=== PATIENT | male | born 1945 | race Caucasian/White ===

== ENCOUNTER 2021-06-23 06:36 | Day surgery (SDC) | payer OTHER, SELFPAY ==
[~2021-06-23] VITALS: Ht 170.2 cm; Wt 80.3 kg
[2021-06-23] MEDS ORDERED: fentaNYL citrate 0.05 MG/ML VIAL ONE (09:20)
[2021-06-23] MEDS ORDERED: LIDOCAINE 2% 100 MG/5 ML UJET TP ONE (09:20)
[2021-06-23] MEDS ORDERED: fentaNYL citrate 0.05 MG/ML VIAL IVP ONE (10:00)
== END 2021-06-23 11:17 | disposition home or self-care (01) ==
LOC: MLB 06:36 → MMU 06:37 → MLB 11:17
PROVIDERS: ATTEND Internal Medicine Gastroenterology
DX: K62.5 Hemorrhage of anus and rectum (principal); K57.30 Diverticulosis of large intestine without perforation or abscess without bleeding; K64.9 Unspecified hemorrhoids; I10 Essential (primary) hypertension; Z98.890 Other specified postprocedural states; Z87.891 Personal history of nicotine dependence; Z79.01 Long term (current) use of anticoagulants; Z79.899 Other long term (current) drug therapy; Z20.822 Contact with and (suspected) exposure to COVID-19
CPT/HCPCS: 45378; 87426; J3010